=== PATIENT | female | born 1965 | race American Indian/Alaskan Native ===

== ENCOUNTER 2019-11-01 21:05 | Emergency (ER) | payer SELFPAY ==
[2019-11-02 00:07] VITALS: BP 126/93
[2019-11-02 00:48] LABS: Basophils # (Auto) 0.1 K/mm3 (0.0-0.1); Basophils % (Auto) 0.9 % (0.0-1.8); Eosinophils # (Auto) 0.3 K/mm3 (0.0-0.4); Eosinophils % (Auto) 4.6 % (0.0-4.3); Hematocrit 41.9 % (30.3-42.9); Hemoglobin 14.5 gm/dl (10.1-14.3); Lymphocytes # (Auto) 3.1 K/mm3 (1.2-5.4); Lymphocytes % (Auto) 47.8 % (13.4-35.0); Mean Corpuscular HGB Conc 35 % (30-34); Mean Corpuscular Volume 93 fl (79-97); Monocytes # (Auto) 0.3 K/mm3 (0.0-0.8); Monocytes % (Auto) 5.1 % (0.0-7.3); Platelet Count 274 K/mm3 (140-440); Red Blood Count 4.49 M/mm3 (3.65-5.03)
[2019-11-02 01:15] LABS: Alanine Aminotransferase 12 units/L (7-56); Albumin 4.4 g/dL (3.9-5); BUN/Creatinine Ratio 20; Blood Urea Nitrogen 12 mg/dL (7-17); Calcium 9.7 mg/dL (8.4-10.2); Hemolysis Index 4
[2019-11-02 03:08] LABS: Bilirubin,Urine NEG (Negative); Blood,Urine NEG (Negative); Color,Urine Yellow (Yellow); Mucus,Urine FEW /HPF; Protein,Urine <15 mg/dL mg/dL (Negative); Urobilinogen,Urine < 2.0 mg/dL (<2.0)
--- NOTE | 2019-11-02 08:10 | Emergency Department Report ---
ED Abdominal Pain HPI - General Chief Complaint: Abdominal Pain Stated Complaint: RT RIB PAIN Time Seen by Provider: 11/02/19 07:23 Source: patient Mode of arrival: Ambulatory Limitations: No Limitations - History of Present Illness Initial Comments: 55 YO COMES TO ER WITH HX PAIN UNDER R LOWER RIB CAGE FOR MONTHS. DENIES N/V/D. DENIES FEVER OR CHILLS. AMBULATORY NON ILL NON TOXIC AFEBRILE MD Complaint: abdominal pain - Related Data Previous Rx's Medication Instructions Recorded Last Taken Type Magnesium Citrate [Citrate of 296 ml PO ONCE #1 bottle 11/02/19 Unknown Rx Magnesia] Polyethylene Glycol 3350 [Miralax] 119 gm PO DAILY #30 day 11/02/19 Unknown Rx Sennosides [Senna] 8.6 mg PO BID #60 capsule 11/02/19 Unknown Rx bisacodyL [Dulcolax suppos] 10 mg GA ONCE #1 supp.rect 11/02/19 Unknown Rx Allergies Allergy/AdvReac Type Severity Reaction Status Date / Time No Known Allergies Allergy Verified 02/22/16 11:17 ED Review of Systems ROS: Stated complaint: RT RIB PAIN Other details as noted in HPI Comment: All other systems reviewed and negative ED Past Medical Hx - Past Medical History Previous Medical History?: No - Surgical History Past Surgical History?: Yes Additional Surgical History: fibroids removed - Family History Family history: no significant - Social History Smoking Status: Current Every Day Smoker Substance Use Type: Alcohol - Medications Home Medications: Home Medications Medication Instructions Recorded Confirmed Last Taken Type Magnesium Citrate [Citrate of 296 ml PO ONCE #1 bottle 11/02/19 Unknown Rx Magnesia] Polyethylene Glycol 3350 [Miralax] 119 gm PO DAILY #30 day 11/02/19 Unknown Rx Sennosides [Senna] 8.6 mg PO BID #60 capsule 11/02/19 Unknown Rx bisacodyL [Dulcolax suppos] 10 mg GA ONCE #1 supp.rect 11/02/19 Unknown Rx ED Physical Exam - General Limitations: No Limitations General appearance: alert, in no apparent distress - Head Head exam: Present: atraumatic, normocephalic - Eye Eye exam: Present: normal appearance - ENT ENT exam: Present: mucous membranes moist - Neck Neck exam: Present: normal inspection - Respiratory Respiratory exam: Present: normal lung sounds bilaterally. Absent: respiratory distress - Cardiovascular Cardiovascular Exam: Present: regular rate, normal rhythm. Absent: systolic murmur, diastolic murmur, rubs, gallop - GI/Abdominal GI/Abdominal exam: Present: soft, normal bowel sounds - Extremities Exam Extremities exam: Present: normal inspection - Back Exam Back exam: Present: normal inspection - Neurological Exam Neurological exam: Present: alert, oriented X3 - Psychiatric Psychiatric exam: Present: normal affect, normal mood - Skin Skin exam: Present: warm, dry, intact, normal color. Absent: rash ED Course Vital Signs 11/02/19 00:05 Temperature 98.4 F Pulse Rate 81 Respiratory 18 Rate Blood Pressure 126/93 O2 Sat by Pulse 99 Oximetry ED Medical Decision Making - Lab Data Result diagrams: 11/02/19 00:31 11/02/19 00:31 - Radiology Data Radiology results: report reviewed, image reviewed - Medical Decision Making Labs 11/02/19 11/02/19 11/02/19 00:31 00:31 02:37 WBC 6.6 RBC 4.49 Hgb 14.5 H Hct 41.9 MCV 93 MCH 32 MCHC 35 H RDW 13.0 L Plt Count 274 Lymph % (Auto) 47.8 H [place] % (Auto) 5.1 Eos % (Auto) 4.6 H Baso % (Auto) 0.9 Lymph # 3.1 [place] # 0.3 Eos # 0.3 Baso # 0.1 Seg Neutrophils % 41.6 Seg Neutrophils # 2.7 Sodium 143 Potassium 4.0 Chloride 104.1 Carbon Dioxide 25 Anion Gap 18 BUN 12 Creatinine 0.6 L Estimated GFR > 60 BUN/Creatinine Ratio 20 Glucose 88 Calcium 9.7 Total Bilirubin 0.30 AST 18 ALT 12 Alkaline Phosphatase 60 Total Protein 7.1 Albumin 4.4 Albumin/Globulin Ratio 1.6 Urine Color Yellow Urine Turbidity Slightly-cloudy Urine pH 5.0 Ur Specific [place] 1.025 Urine Protein <15 mg/dl Urine Glucose (UA) Neg Urine Ketones Neg Urine Blood Neg Urine Nitrite Neg Urine Bilirubin Neg Urine Urobilinogen < 2.0 Ur Leukocyte Esterase Tr Urine WBC (Auto) 4.0 Urine RBC (Auto) 2.0 U Epithel Cells (Auto) 3.0 Urine Mucus Few Vital Signs 11/02/19 00:05 Temperature 98.4 F Pulse Rate 81 Respiratory 18 Rate Blood Pressure 126/93 O2 Sat by Pulse 99 Oximetry LABS NOTED XRAY NOTED MEDICATED IN ER AND DC HOME WITH RX FOR A/C CONSTIPATION. PT VERBALIZES UNDERSTANDING OF PLAN OF CARE. Critical care attestation.: If time is entered above; I have spent that time in minutes in the direct care of this critically ill patient, excluding procedure time. ED Disposition Clinical Impression: Constipated Disposition: DC-01 TO HOME OR SELFCARE Is pt being admited?: No Does the pt Need Aspirin: No Condition: Stable Instructions: Constipation (ED) Additional Instructions: DRINK A LOT OF WATER AVOID NARCOTICS TAKE MEDS ORDERED TODAY FOLLOW UP WITH PCP REFERRAL BELOW FOLLOW UP WITH EYE MD REFERRAL BELOW Prescriptions: Magnesium Citrate [Citrate of Magnesia] 296 ml PO ONCE #1 bottle bisacodyL [Dulcolax suppos] 10 mg GA ONCE #1 supp.rect Polyethylene Glycol 3350 [Miralax] 119 gm PO DAILY #30 day Sennosides [Senna] 8.6 mg PO BID #60 capsule Referrals: [facility] MD REYNA [Primary Care Provider] - 3-5 Days SCOTTIE BRIGGS MD [Staff Physician] - 3-5 Days SHASHI PUGH MD [Staff Physician] - 3-5 Days Time of Disposition: 08:20
--- NOTE | 2019-11-02 08:13 | XRay Report ---
ABDOMEN 1 VIEW(S) INDICATION / CLINICAL INFORMATION: abd pain. COMPARISON: None available. FINDINGS: TUBES / LINES: None. BOWEL GAS PATTERN: No significant abnormality. Moderate colonic stool burden. FREE AIR / EXTRALUMINAL GAS: None seen. ADDITIONAL FINDINGS: No significant additional findings. IMPRESSION: 1. Moderate colonic stool burden can be seen with constipation. Otherwise unremarkable exam. Signer Name: Alok Herrera MD Signed: 11/02/2019 8:08 AM Workstation Name: [id number]
[2019-11-02] MEDS ORDERED: SENNOSIDES 8.6 MG TAB PO ONE (08:30)
[2019-11-02] MEDS ORDERED: POLYETHYLENE GLYCOL 3350 17 GM POWDER PO ONE (08:30)
== END 2019-11-02 08:55 | disposition home or self-care (01) ==
LOC: ED 21:05
DX: K59.00 Constipation, unspecified (principal); F17.200 Nicotine dependence, unspecified, uncomplicated
CPT/HCPCS: 36415; 74018; 80053; 81001; 85025; 99284

== ENCOUNTER 2020-11-08 21:52 | Emergency (ER) | payer SELFPAY | END 2020-11-08 22:25 | disposition left against medical advice (07) | LOC: ED 21:52 | DX: R10.2 Pelvic and perineal pain (principal); Z53.21 Procedure and treatment not carried out due to patient leaving prior to being seen by health care provider ==

== ENCOUNTER 2022-07-02 18:27 | Emergency (ER) | payer SELFPAY ==
[2022-07-02 19:46] VITALS: BP 111/69
== END 2022-07-03 01:20 | disposition left against medical advice (07) ==
LOC: ED 18:27
DX: N89.8 Other specified noninflammatory disorders of vagina (principal); Z53.21 Procedure and treatment not carried out due to patient leaving prior to being seen by health care provider